=== PATIENT | female | born 1995 | race Caucasian/White ===

== ENCOUNTER → 2025-02-16 09:16 | Outpatient (REF) | payer OTHER, SELFPAY | LOC: OHS 09:16 | PROVIDERS: ATTENDING PHYSICIAN Nurse Practitioner Family | DX: Z23 Encounter for immunization (principal) | CPT/HCPCS: 36415; 86480 ==

== ENCOUNTER → 2025-04-13 18:04 | Outpatient (REF) | payer BC, SELFPAY ==
[2025-04-20 22:33] LABS: HPV, High Risk Not Detected; HPV, High Risk Source Cervical
== END ==
LOC: CPAP 18:04
PROVIDERS: ATTENDING PHYSICIAN Obstetrics & Gynecology
DX: Z01.419 Encounter for gynecological examination (general) (routine) without abnormal findings (principal); Z11.51 Encounter for screening for human papillomavirus (HPV)
CPT/HCPCS: 87624; G0123

== ENCOUNTER → 2025-04-29 06:56 | Outpatient (REF) | payer BC, SELFPAY ==
[2025-04-29 08:38] LABS: Beta HCG Quantitative < 2.39 mIU/ml; FSH 3.3 mIU/ml
== END ==
LOC: REG 06:56
PROVIDERS: ATTENDING PHYSICIAN Obstetrics & Gynecology; FAMILY PHYSICIAN Family Medicine
DX: N91.2 Amenorrhea, unspecified (principal)
CPT/HCPCS: 36415; 83001; 83002; 84702

== ENCOUNTER → 2025-05-02 12:36 | Outpatient (REF) | payer BC, SELFPAY | LOC: RAD 12:36 | PROVIDERS: ATTENDING PHYSICIAN Obstetrics & Gynecology; REFERRING PHYSICIAN Obstetrics & Gynecology | DX: N91.1 Secondary amenorrhea (principal); Z87.59 Personal history of other complications of pregnancy, childbirth and the puerperium | CPT/HCPCS: 76830; 76856 ==

== ENCOUNTER → 2025-05-12 14:37 | Outpatient (REF) | payer BC, SELFPAY ==
[2025-05-12 15:39] LABS: Hematocrit 36.9 % (37.0-47.0); Hemoglobin 13.2 g/dL (12.0-16.0); Mean Corp Hgb Conc. 35.8 g/dL (33.0-37.0); Mean Corpuscular Volume 88.5 fL (81.0-99.0); Nucleated Red Blood Cells % 0 %; Platelet Count 216 10^3/uL (130-400); Red Cell Dist. Width 11.9 % (11.5-14.5)
[2025-05-12 18:55] LABS: Hepatitis B Surface Antigen Negative (Negative)
[2025-05-12 19:13] LABS: Hepatitis C Antibody Negative (Negative)
[2025-05-13 16:10] LABS: Syphilis/T. pallidum Ab Reflex Negative (Negative)
== END ==
LOC: REG 14:37
PROVIDERS: ATTENDING PHYSICIAN Obstetrics & Gynecology; FAMILY PHYSICIAN Family Medicine
DX: Z13.0 Encounter for screening for diseases of the blood and blood-forming organs and certain disorders involving the immune mechanism (principal); Z01.83 Encounter for blood typing; Z11.59 Encounter for screening for other viral diseases; Z11.3 Encounter for screening for infections with a predominantly sexual mode of transmission; Z11.4 Encounter for screening for human immunodeficiency virus [HIV]
CPT/HCPCS: 36415; 85025; 86762; 86780; 86803; 86850; 86900; 86901; 87340; 87389

== ENCOUNTER → 2025-05-17 08:48 | Outpatient (REF) | payer BC, SELFPAY | LOC: REG 08:48 | PROVIDERS: ATTENDING PHYSICIAN Obstetrics & Gynecology; FAMILY PHYSICIAN Family Medicine | DX: Z11.59 Encounter for screening for other viral diseases (principal) | CPT/HCPCS: 36415; 86765 ==